=== PATIENT | male | born 1980 | race Two or more races ===

== ENCOUNTER 2018-06-21 18:59 | Emergency (ER) | payer SELFPAY ==
[~2018-06-21] VITALS: Ht 177.8 cm; Wt 78.9 kg
[2018-06-21] MEDS ORDERED: IPRATRPIUM/ALBUTEROL 0.5/2.5MG 3 ML NEBU. NEB ONE ×2 (20:00→21:30)
[2018-06-21] MEDS ORDERED: predniSONE 10 MG TABLET PO ONE (20:00)
--- NOTE | 2018-06-21 20:06 | PHYS DOC ---
Adult General Chief Complaint Chief Complaint: SHORTNESS OF BREATH HPI HPI Patient is a 37 year old male who presents with states her last 3 years off-and -on knee gets short of breath with exertion and in the past when he is going to the hospital they told him he had asthma and he does have an inhaler that he uses every Theodore. Patient states here recently in the last day he states that he is began wheezing and began having chest tightness is getting worse. Patient states the chest tightness and then right shoulder blade pain. Patient denies smoking or drug use. States he has been coughing and he'll cough up clear mucus. (RODOLFO CHIN APRN) Review of Systems Review of Systems Constitutional: fever or chills [] Eyes: Denies change in visual acuity, redness, or eye pain [] HENT: Denies nasal congestion or sore throat [] Respiratory: cough or shortness of breath [] Cardiovascular: Chest tightness with right shoulder blade pain. GI: Denies abdominal pain, nausea, vomiting, bloody stools or diarrhea [] : Denies dysuria or hematuria [] Musculoskeletal: Denies back pain or joint pain [] Integument: Denies rash or skin lesions [] Neurologic: Denies headache, focal weakness or sensory changes [] All other systems were reviewed and found to be within normal limits, except as documented in this note. (RODOLFO CHIN APRN) Current Medications Current Medications Current Medications Medications (Trade) Dose Ordered Sig/Yogesh Start Time Stop Time Status Last Admin Dose Admin Albuterol/ Ipratropium (Duoneb) 3 ml 1X ONCE 06/21/18 21:30 06/21/18 21:31 DC 06/21/18 21:41 3 ML Prednisone (Prednisone) 50 mg 1X ONCE 06/21/18 20:00 06/21/18 20:06 DC 06/21/18 20:47 50 MG (HUBERT URBANO DO) Allergies Allergies Allergies Coded Allergies Type Severity Reaction Last Updated Verified No Known Drug Allergies 06/21/18 No (HUBERT URBANO DO) Physical Exam Physical Exam Constitutional: Well developed, well nourished, no acute distress, non-toxic appearance. [] HENT: Normocephalic, atraumatic, bilateral external ears normal, oropharynx moist, no oral exudates, nose normal. [] Eyes: PERRLA, EOMI, conjunctiva normal, no discharge. [] Neck: Normal range of motion, no tenderness, supple, no stridor. [] Cardiovascular:Heart rate regular rhythm, no murmur [] Lungs & Thorax: Bilateral breath sounds inspiratory expiratory wheezes to auscultation [] Abdomen: Bowel sounds normal, soft, no tenderness, no masses, no pulsatile masses. [] Skin: Warm, dry, no erythema, no rash. [] Back: No tenderness, no CVA tenderness. [] Extremities: No tenderness, no cyanosis, no clubbing, ROM intact, no edema. [] Neurologic: Alert and oriented X 3, normal motor function, normal sensory function, no focal deficits noted. [] Psychologic: Affect normal, judgement normal, mood normal. [] (RODOLFO CHIN APRN) Current Patient Data Vital Signs Vital Signs Date Time Temp Pulse Resp B/P (MAP) Pulse Ox O2 Delivery O2 Flow Rate FiO2 06/21/18 23:35 90 145/85 (105) 93 Room Air 06/21/18 21:10 22 06/21/18 19:45 98.0 98.0 (HUBERT URBANO DO) Lab Values Laboratory Tests Test 06/21/18 20:35 White Blood Count 14.3 x10^3/uL (4.0-11.0) H Red Blood Count 5.56 x10^6/uL (4.30-5.70) Hemoglobin 15.9 g/dL (13.0-17.5) Hematocrit 47.6 % (39.0-53.0) Mean Corpuscular Volume 86 fL (79-100) Mean Corpuscular Hemoglobin 29 pg (25-35) Mean Corpuscular Hemoglobin Concent 34 g/dL (31-37) Red Cell Distribution Width 13.9 % (11.5-14.5) Platelet Count 315 x10^3/uL (140-400) Neutrophils (%) (Auto) 42 % (31-73) Lymphocytes (%) (Auto) 43 % (24-48) Monocytes (%) (Auto) 9 % (0-9) Eosinophils (%) (Auto) 5 % (0-3) H Basophils (%) (Auto) 1 % (0-3) Neutrophils # (Auto) 6.0 x10^3uL (1.8-7.7) Lymphocytes # (Auto) 6.1 x10^3/uL (1.0-4.8) H Monocytes # (Auto) 1.3 x10^3/uL (0.0-1.1) H Eosinophils # (Auto) 0.7 x10^3/uL (0.0-0.7) Basophils # (Auto) 0.1 x10^3/uL (0.0-0.2) Sodium Level 139 mmol/L (136-145) Potassium Level 3.8 mmol/L (3.5-5.1) Chloride Level 101 mmol/L (98-107) Carbon Dioxide Level 28 mmol/L (21-32) Anion Gap 10 (6-14) Blood Urea Nitrogen 15 mg/dL (8-26) Creatinine 0.8 mg/dL (0.7-1.3) Estimated GFR (Cockcroft-Gault) 107.6 Glucose Level 119 mg/dL (70-99) H Calcium Level 8.8 mg/dL (8.5-10.1) Troponin I Quantitative < 0.017 ng/mL (0.000-0.055) Laboratory Tests 06/21/18 20:35 Laboratory Tests 06/21/18 20:35 (HUBERT URBANO DO) Lab Values Laboratory Tests Test 06/21/18 20:35 White Blood Count 14.3 x10^3/uL (4.0-11.0) H Red Blood Count 5.56 x10^6/uL (4.30-5.70) Hemoglobin 15.9 g/dL (13.0-17.5) Hematocrit 47.6 % (39.0-53.0) Mean Corpuscular Volume 86 fL (79-100) Mean Corpuscular Hemoglobin 29 pg (25-35) Mean Corpuscular Hemoglobin Concent 34 g/dL (31-37) Red Cell Distribution Width 13.9 % (11.5-14.5) Platelet Count 315 x10^3/uL (140-400) Neutrophils (%) (Auto) 42 % (31-73) Lymphocytes (%) (Auto) 43 % (24-48) Monocytes (%) (Auto) 9 % (0-9) Eosinophils (%) (Auto) 5 % (0-3) H Basophils (%) (Auto) 1 % (0-3) Neutrophils # (Auto) 6.0 x10^3uL (1.8-7.7) Lymphocytes # (Auto) 6.1 x10^3/uL (1.0-4.8) H Monocytes # (Auto) 1.3 x10^3/uL (0.0-1.1) H Eosinophils # (Auto) 0.7 x10^3/uL (0.0-0.7) Basophils # (Auto) 0.1 x10^3/uL (0.0-0.2) Sodium Level 139 mmol/L (136-145) Potassium Level 3.8 mmol/L (3.5-5.1) Chloride Level 101 mmol/L (98-107) Carbon Dioxide Level 28 mmol/L (21-32) Anion Gap 10 (6-14) Blood Urea Nitrogen 15 mg/dL (8-26) Creatinine 0.8 mg/dL (0.7-1.3) Estimated GFR (Cockcroft-Gault) 107.6 Glucose Level 119 mg/dL (70-99) H Calcium Level 8.8 mg/dL (8.5-10.1) Troponin I Quantitative < 0.017 ng/mL (0.000-0.055) Laboratory Tests 06/21/18 20:35 Laboratory Tests 06/21/18 20:35 (RODOLFO CHIN APRN) EKG EKG Sinus Rhythm and no STEMI Interpretation Time: [address] Urbano (RODOLFO CHIN APRN) Radiology/Procedures Radiology/Procedures [] (RODOLFO CHIN APRN) Impressions: [facility] [address] [place], [place] [id number] IMAGING REPORT Signed PATIENT: AMARIS DALEY ACCOUNT: [id number] : 1980 LOCATION: ER AGE: 37 SEX: M EXAM STATUS: REG ER ORD. PHYSICIAN: RODOLFO CHIN APRN REASON: soa PROCEDURE: CHEST PA & LATERAL Chest radiograph 06/21/2018 7:55 PM INDICATION: Shortness of breath COMPARISON: None available TECHNIQUE: Frontal and lateral views of the chest are provided. FINDINGS: The cardiomediastinal silhouette is within normal limits. There are no pleural effusions. There is no pulmonary vascular congestion. There is no pneumothorax. The lungs are clear. Nonunited left clavicular fracture involving the middle one third of the left clavicle. IMPRESSION: No acute cardiopulmonary process. Nonunited left clavicular fracture involving the middle one third of the left clavicle. Electronically signed by: Monica Anthony MD (06/21/2018 8:43 PM) [facility] DICTATED and SIGNED BY: MONICA ANTHONY MD DATE: 06/21/182041 (RODOLFO CHIN APRN) Course & Med Decision Making Course & Med Decision Making Patient is a 37 year old male who presents with states her last 3 years off-and -on knee gets short of breath with exertion and in the past when he is going to the hospital they told him he had asthma and he does have an inhaler that he uses every once in a while but usually daily. Patient states here recently in the last day he states that he is began wheezing and began having chest tightness is getting worse. Patient states the chest tightness and then right shoulder blade pain. Patient denies smoking or drug use. States he has been coughing and he'll cough up clear mucus. Patient states he thinks he's been running a fever started last night. He is afebrile in the ED. Heart rate 80, 95 % on room air, 157/103, 20 respirations. Patient has inspiratory, expiratory wheezes throughout all lung lobes. Heart rate regular no murmur. Mucous membranes are moist. Skin pink warm and dry. Patient speaks in full clear sentences. His extremity swelling. Patient takes no other medication and his only history is asthma but states he has never been formally diagnosed with asthma. Abdominal is soft and nontender. Patient denies any nausea, vomiting, diarrhea, dizziness or dysuria. Xray shows No acute cardiopulmonary process. Nonunited left clavicular fracture involving the middle one third of the left clavicle. Pressure appears to be old in the left clavicle. Chest x-ray shows no acute findings. Patient states that after his breathing treatment he is feeling slightly better but he still has audible wheezes and so he will receive a second breathing treatment. Patient is likely having an asthma exacerbation. Patient states he is feeling better after breathing treatment and lung sounds are clearer upon auscultation and no longer has audible wheezes. Vital signs remain wnl, 77 heart rate, 96% room air. (RODOLFO CHIN APRN) Dragon Disclaimer Dragon Disclaimer This electronic medical record was generated, in whole or in part, using a voice recognition dictation system. (RODOLFO CHIN APRN) Departure Departure Impression: Primary Impression: Asthma exacerbation Disposition: HOME, SELF-CARE Condition: STABLE Referrals: NO PCP (PCP) Patient Instructions: Asthma, Adult Additional Instructions: Follow up with primary care if needed. Take medications as prescribed. Scripts Albuterol Sulfate (PROAIR HFA INHALER) 8.5 Gm Hfa.aer.ad 1 PUFF INH PRN Q6HRS PRN for SHORTNESS OF BREATH, #1 INHALER 0 Refills Prov: RODOLFO CHIN APRN 06/21/18 Methylprednisolone (MEDROL) 4 Mg Tab.ds.pk 1 PKG PO UD, #1 PKG Prov: RODOLFO CHIN APRN 06/21/18 Attending Signature Attending Signature I have reviewed the PA/SALES PLANNING COORDINATOR's note and plan of care. I was available for consultation as needed during the patient's visit in the emergency department. I agree with the clinical impression, plan, and disposition. (HUBERT URBANO DO) Problem Qualifiers Primary Impression: Asthma exacerbation Asthma severity: mild Asthma persistence: intermittent Qualified Codes: J45.21 - Mild intermittent asthma with (acute) exacerbation RODOLFO CHIN APRN Jun 21, 2018 20:06 HUBERT URBANO DO Jun 26, 2018 13:46
--- NOTE | 2018-06-21 20:46 | RAD ---
Chest radiograph 06/21/2018 7:55 PM INDICATION: Shortness of breath COMPARISON: None available TECHNIQUE: Frontal and lateral views of the chest are provided. FINDINGS: The cardiomediastinal silhouette is within normal limits. There are no pleural effusions. There is no pulmonary vascular congestion. There is no pneumothorax. The lungs are clear. Nonunited left clavicular fracture involving the middle one third of the left clavicle. IMPRESSION: No acute cardiopulmonary process. Nonunited left clavicular fracture involving the middle one third of the left clavicle. Electronically signed by: Aidee Garcia MD (06/21/2018 8:43 PM) [facility]
[2018-06-21 20:47] LABS: BASO # 0.1 x10^3/uL (0.0-0.2); BASO % 1 % (0-3); EOS # 0.7 x10^3/uL (0.0-0.7); EOS % 5 % (0-3); HEMATOCRIT 47.6 % (39.0-53.0); HEMOGLOBIN 15.9 g/dL (13.0-17.5); LYMPH # 6.1 x10^3/uL (1.0-4.8); LYMPH % 43 % (24-48); MEAN CORPUSCULAR HEMOGLOBIN 29 pg (25-35); MEAN CORPUSCULAR HGB CONC 34 g/dL (31-37); MEAN CORPUSCULAR VOLUME 86 fL (79-100); MONO # 1.3 x10^3/uL (0.0-1.1); MONO % 9 % (0-9); NEUT % 42 % (31-73); PLATELET COUNT 315 x10^3/uL (140-400); RED BLOOD COUNT 5.56 x10^6/uL (4.30-5.70); RED CELL DISTRIBUTION WIDTH 13.9 % (11.5-14.5); WHITE BLOOD COUNT 14.3 x10^3/uL (4.0-11.0)
[2018-06-21 20:56] LABS: CALCIUM 8.8 mg/dL (8.5-10.1); CREATININE 0.8 mg/dL (0.7-1.3); GFR 107.6; POTASSIUM 3.8 mmol/L (3.5-5.1)
[2018-06-21] MEDS ORDERED: METH4TAB2 PO (22:28)
[2018-06-21] MEDS ORDERED: ALBU2.5V8 INH (22:28)
[2018-06-21 23:35] VITALS: BP 145/85
--- NOTE | 2018-06-22 08:04 | EKG ---
[facility] [address] [place] [id number] Test Date: 2018-06-21 Test Time: 19:52:57 Pat Name: AMARIS DALEY Department: Room: Gender: M Restaurant Shift Leader: : 1980 Requested By: RODOLFO CHIN Order Number: [id number] Reading MD: Alton Hilliard MD Measurements Intervals [place] Rate: 79 P: 70 HI: 146 QRS: 24 QRSD: 82 T: 41 QT: 366 QTc: 421 Interpretive Statements SINUS RHYTHM Electronically Signed On 07-03-2018 12:01:56 REEL CART OPERATOR by Alton Hilliard MD
== END 2018-06-21 23:52 | disposition home or self-care (01) ==
LOC: ER 18:59
DX: J45.21 Mild intermittent asthma with (acute) exacerbation (principal); M25.511 Pain in right shoulder
CPT/HCPCS: 36415; 71046; 80048; 84484; 85025; 93005; 94640; 99284; J7512; J7620